=== PATIENT | female | born 1995 | race African-American/Black ===

== ENCOUNTER 2018-08-01 15:41 | Emergency (ER) | payer OTHER ==
[~2018-08-01] VITALS: Ht 167.6 cm; Wt 63.5 kg
[2018-08-01 15:50] VITALS: BP 105/65
--- NOTE | 2018-08-01 16:29 | Emergency Room Report ---
History of Present Illness General Chief Complaint: Vaginal Source: Patient Present Illness HPI 34-year-old female in no significant past medical history her complaining of white clumpy vaginal discharge without any pruritus of the vaginal area. Denies dysuria urinary frequency and malodorous vaginal discharge. Patient is sexually active with the same partner denies any past positive STD. Denies abdominal pain, suprapubic pain, fevers chills, nausea vomiting. Denies SOB, chest pain, palpitation and all other associated symptoms Allergies: Coded Allergies: TRAMADOL (Verified Allergy, Unknown, 08/01/18) Patient History Past Medical History: see triage record Now: No Immunizations: UTD Reviewed Nursing Documentation: PMH: Agreed; PSxH: Agreed Nursing Documentation-PMH Past Medical History: No Stated History Review of Systems All Other Systems: negative except mentioned in HPI Physical Exam Vital Signs Date Time Temp Pulse Resp B/P (MAP) Pulse Ox O2 Delivery O2 Flow Rate FiO2 08/01/18 15:45 98.3 75 18 105/65 99 Room Air 98.2 Sp02 EP Interpretation: reviewed, normal General Appearance: normal inspection, well appearing, no apparent distress, alert Head: normocephalic Eyes: bilateral eye normal inspection, bilateral eye PERRL ENT: normal ENT inspection, hearing grossly normal, normal pharynx Neck: normal inspection, full range of motion, supple Respiratory: normal inspection, chest non-tender, no rhonchi, no wheezing Cardiovascular #1: normal inspection, no edema, no murmur Gastrointestinal: normal inspection, non tender, soft Rectal: deferred Genitourinary: normal inspection, no CVA tenderness, ext genitalia/vag normal Musculoskeletal: normal inspection, back normal Neurologic: normal inspection, alert, oriented x3 Psychiatric: normal inspection, judgement/insight normal, memory normal Skin: normal inspection, normal color, no rash, warm/dry Lymphatic: normal inspection, no adenopathy, axilla node tender (R) Medical Decision Making PA Attestation I'll diagnosis and treatment plans were reviewed and discussed with my supervising physician Dr. Moeller Diagnostic Impression: Primary Impression: Yeast infection ER Course 34-year-old female in no significant past medical history her complaining of white clumpy vaginal discharge without any pruritus of the vaginal area. Denies dysuria urinary frequency and malodorous vaginal discharge. Patient is sexually active with the same partner denies any past positive STD. Denies abdominal pain, suprapubic pain, fevers chills, nausea vomiting. Denies SOB, chest pain, palpitation and all other associated symptoms Ddx considered but are not limited to yeast infection, UTI, STD Vital signs: are WNL, pt. is afebrile H&PE are most consistent with yeast infection ORDERS: UA and urine test ED INTERVENTIONS: None required at this time. DISCHARGE: At this time pt. is stable for d/c to home. Will provide printed patient care instructions, and any necessary prescriptions. Care plan and follow up instructions have been discussed with the patient prior to discharge. UA within normal limits urine test negative Last Vital Signs Date Time Temp Pulse Resp B/P (MAP) Pulse Ox O2 Delivery O2 Flow Rate FiO2 08/01/18 15:50 98.2 18 105/65 99 Room Air 98.2 08/01/18 15:45 75 Disposition: HOME, SELF-CARE Condition: Stable Scripts Fluconazole (FLUCONAZOLE) 100 Mg Tablet 100 MG ORAL DAILY, #1 TAB 0 Refills Prov: Milvia Alexander 08/01/18 Patient Instructions: Vaginal Yeast Infection, Adult Additional Instructions: take medication as directed, follow with the primary care provider Milvia Alexander Aug 01, 2018 16:29
[2018-08-01] MEDS ORDERED: FLUCONAZOLE100 MG ORAL (16:30)
[2018-08-01 16:55] LABS: APPEARANCE,URINE CLEAR; BILIRUBIN, URINE NEGATIVE (NEGATIVE); COLOR,URINE AMBER; GLUCOSE, URINE (UA) NEGATIVE (NEGATIVE); KETONES,URINE NEGATIVE (NEGATIVE); LEUKOCYTE ESTERASE ,URINE 2+ (NEGATIVE); NITRITE,URINE NEGATIVE (NEGATIVE); PH,URINE 8 (4.5-8.0); PROTEIN,URINE NEGATIVE (NEGATIVE); UROBILINOGEN,URINE NORMAL MG/DL (0.0-1.0)
[2018-08-01 17:20] VITALS: BP 110/78
== END 2018-08-01 17:20 | disposition home or self-care (01) ==
LOC: EMR 17:00
DX: B37.3 Candidiasis of vulva and vagina (principal)
CPT/HCPCS: 81001; 81025; 87086; 99283